=== PATIENT | female | born 1995 | race Asian ===

== ENCOUNTER 2017-02-04 20:04 | Emergency (ER) | payer BC ==
[~2017-02-04] VITALS: Ht 162.6 cm; Wt 83.9 kg
[2017-02-04 22:45] VITALS: BP 126/88; TEMP 98.2
== END 2017-02-04 22:51 | disposition home or self-care (01) ==
LOC: ED 20:04
DX: S41.001A Unspecified open wound of right shoulder, initial encounter (principal); S41.101A Unspecified open wound of right upper arm, initial encounter; S81.001A Unspecified open wound, right knee, initial encounter; S40.021A Contusion of right upper arm, initial encounter; S70.01XA Contusion of right hip, initial encounter; V86.59XA Driver of other special all-terrain or other off-road motor vehicle injured in nontraffic accident, initial encounter; Y92.488 Other paved roadways as the place of occurrence of the external cause
CPT/HCPCS: 90471; 90715; 96372; 99283